=== PATIENT | female | born 1970 | race Caucasian/White ===

== ENCOUNTER 2017-02-27 11:35 | Day surgery (SDC) | payer OTHER ==
[2017-02-27] VITALS (10 sets, daily range): BP systolic 116–163; BP diastolic 64–98; PULSE 67–86; RESP 14–22; TEMP 98–98.1; O2SAT 94–97; Ht 172.7 cm; Wt 124.7 kg
[~2017-02-27] VITALS: Ht 172.7 cm; Wt 124.7 kg
[~2017-02-27 11:35] MED LIST: ATEN25TA PO; ESTR1TAB17 PO; LIDOCAINE 1% (10mg/ml) 2ml SDV INJ ONE; LR 1,000 ML IV SCH; OMEP40CA52 PO
--- OUTSIDE RECORDS SUMMARY | 2017-02-27 11:40 | XMS REPORT | Continuity of Care Document ---
Author Author [facility] Organization [facility] Address Unknown Phone Unavailable Allergies Medications Problems Date Dx Coded Attending Type Code Diagnosis Diagnosed By 09/21/2012 Adam Duran MD, Gayla Deras V72.83 EXAM PRE-OPERATIVE NEC Procedures Code Description Performed By Performed On . LAPAROSCOPIC ROBOTIC ASSISTED PROCEDURE Daniela SANTAMARIA, Adeola 09/27/2012 65.63 LAPAROSCOP REMOVE OVARIES/TUBES Daniela SANTAMARIA, Adeola 09/27/2012 68.41 LAPAROSCOPIC TOTAL ABDOMINAL HYSTERECTOMY Daniela SANTAMARIA, Adeola 09/27/2012 Results Test Result Range METABOLIC PANEL, [facility] - 09/21/12 15:22 POTASSIUM 3.9 mmol/L 3.5-5.3 EST GFR (MDRD) 58 mL/min > 59 ANION GAP 8 mmol/L 5-15 EST CrCl (CG) > 60 mL/min > 59 GLUCOSE 100 mg/dL 70-99 CALCIUM 8.4 mg/dL 8.5-10.1 BLOOD UREA NITROGEN 14 mg/dL 7-20 CREATININE 1.1 mg/dL 0.6-1.0 SODIUM 138 mmol/L 135-148 CHLORIDE 104 mmol/L 98-110 AST/SGOT 19 Units/L 10-37 ALT/SGPT 32 Units/L < 66 CARBON DIOXIDE 26 mmol/L 21-32 TOTAL PROTEIN 7.3 gm/dL 6.4-8.2 ALBUMIN 3.8 gm/dL 3.4-5.0 BILI TOTAL 0.3 mg/dL 0.0-1.0 ALKALINE PHOSPHATASE TOTAL 93 Units/L 50- 136 CBC - 09/21/12 15:22 COMMENT MEAN CELL HGB 21.0 pg 27.0-33.0 MEAN CELL HGB CONCENTRATION 30.2 g/dL 32.0-37.0 MEAN CELL VOLUME 69.5 fl 80.0-100.0 RED BLOOD CELL 5.09 m/cumm 4.00-6.00 RED CELL DISTRIBUTION WIDTH 17.4 % 11.0- 15.6 WHITE BLOOD CELL 8.6 k/cumm 5.0-10.0 HEMOGLOBIN 10.7 gm/dL 12.0-16.0 HEMATOCRIT 35.4 % 37.0-47.0 PLATELET COUNT 371 k/cumm 150-400 TEST, SERUM - 09/27/12 05:40 TEST, SERUM NEGATIVE NEGATIVE URINALYSIS, ROUTINE - 09/27/12 07:20 UA LEUKOCYTE ESTERASE DIPSTICK NEGATIVE NEGATIVE UA NITRITE DIPSTICK NEGATIVE NEGATIVE UA PROTEIN DIPSTICK NEGATIVE NEGATIVE UA GLUCOSE DIPSTICK NEGATIVE NEGATIVE UA KETONE DIPSTICK NEGATIVE NEGATIVE UA UROBILINOGEN DIPSTICK NORMAL NORMAL UA BILIRUBIN DIPSTICK NEGATIVE NEGATIVE UA BLOOD DIPSTICK NEGATIVE NEGATIVE UA VOLUME FOR EXAM 7.0 mL (12mL STD) UA SPECIFIC GRAVITY 1.025 1.015-1.025 UR PH 5.0 5.0-7.0 Encounters ACCT No. Visit Date/Time Discharge Status Pt. Type Provider Facility Loc./Unit Complaint [id number] 09/27/2012 04:57:00 2011 19:05:00 DIS Outpatient Adam Duran MD, [facility] [id number] 09/21/2012 15:01:00 2011 15:01:00 DIS Outpatient Adam Duran MD, [facility] K[facility]
[2017-02-27] MEDS ORDERED: MIDAZOLAM 5mg/5ml INJECTION ONE ×2 (11:57→12:48)
[2017-02-27] MEDS ORDERED: SALINE FLUSH 10ml SYRINGE ONE (11:57)
[2017-02-27] MEDS ORDERED: FENTANYL 100mcg/2ml INJECTION ONE (11:57)
[2017-02-27] MEDS ORDERED: LIDOCAINE VISCOUS 2% Oral Soln 15ml UD ONE (12:03)
[2017-02-27] MEDS ORDERED: BENZOCAINE 20% Top. Anesth. SPRAY UD ONE (12:03)
[2017-02-27] MEDS ORDERED: FENTANYL 100mcg/2ml INJECTION IV PRN (12:41)
[2017-02-27] MEDS ORDERED: MIDAZOLAM 5mg/5ml INJECTION IV PRN (12:41)
[2017-02-27] MEDS ORDERED: SIMETHICONE 67 MG/ML ORAL DROPS ONE (12:53)
[2017-02-27] MEDS ORDERED: PANT40TA27 PO (13:06)
--- NOTE | 2017-02-27 21:38 | OPNOTEF ---
DATE OF OPERATION 02/27/2017 INDICATION Recent history of melena and epigastric pain. OPERATION Esophagogastroduodenoscopy. SURGEON Maxwell Villagran D.O. ASA CLASSIFICATION II Consent was signed and on the chart. Routine monitoring with ECG, continuous oximetry and noninvasive blood pressure was performed throughout the procedure and found to be within normal limits. IV sedation was performed with 5 mg of Versed and 50 mcg Fentanyl. Prior to the procedure, the patient was brought to the endoscopy lab where a brief review of her medical history and physical exam was performed. The procedure was described to her and she was agreeable to continue. All questions were answered. DESCRIPTION OF OPERATION She was sprayed with a topical anesthetic to the posterior pharynx, given IV sedation and placed in the left lateral decubitus position. Visualization of her vocal cords was normal. The endoscope was advanced into the esophagus, down through the stomach, through the pylorus, to the second part of the duodenum. Duodenal mucosa appeared normal. Endoscope was brought back into the distal antrum, noting antral gastritis and prominent gastric veins at the antrum. The endoscope was retroflexed. There was no appreciable hiatal hernia. The stomach did insufflate and deflate normally. The endoscope was straightened and the stomach decompressed. Endoscope brought back to the GE junction noting reflux esophagitis, LA classification A. This was biopsied. The remainder of her esophagus was free of pathology. She tolerated the procedure well. There were no complications. IMPRESSION 1. Reflux esophagitis, LA classification A, with biopsy. 2. Antral gastritis. 3. Prominent veins in the antrum possibly consistent with portal hypertension. RECOMMENDATIONS I will start her on Protonix, review her path report, recommend weight loss and consider further imaging for portal hypertension. WALTER
== END 2017-02-27 14:01 | disposition home or self-care (01) ==
LOC: SCU 11:35
PROVIDERS: ATTEND Internal Medicine
DX: K29.60 Other gastritis without bleeding (principal); K21.0 Gastro-esophageal reflux disease with esophagitis; K92.1 Melena; R10.12 Left upper quadrant pain; E66.9 Obesity, unspecified; Z68.41 Body mass index [BMI] 40.0-44.9, adult; Z82.49 Family history of ischemic heart disease and other diseases of the circulatory system; E78.5 Hyperlipidemia, unspecified; I10 Essential (primary) hypertension; J45.909 Unspecified asthma, uncomplicated; F17.200 Nicotine dependence, unspecified, uncomplicated; Z79.890 Hormone replacement therapy; Z79.899 Other long term (current) drug therapy
CPT/HCPCS: 43239; J2250; J3010; J7120